=== PATIENT | female | born 1990 | race Caucasian/White ===

== ENCOUNTER 2018-08-03 02:24 | Inpatient (IN) | payer MEDICAID ==
[2018-08-03] MEDS ORDERED: Lidocaine 1% 50 ML MDV INJECT PRN (08:37)
[2018-08-03] MEDS ORDERED: Sodium Chloride 0.9% 10 ML Syringe FLUSH PRN (08:37)
[2018-08-03] MEDS ORDERED: Oxytocin/Lactated Ringers 10 UNIT/1,000 ML BAG IV SCH ×3 (08:45)
[2018-08-03] MEDS: Lactated Ringers 1,000 ML IV SCH ×2 (10:52→18:39)
[2018-08-03] MEDS ORDERED: Ampicillin 2 GM AdvVial IV ONE (14:28)
[2018-08-03] MEDS ORDERED: Ampicillin 2 GM in Sodium Chloride 0.9% 100 ML IV ONE (14:30)
[2018-08-03] MEDS: Nalbuphine 20 MG/ML 1 ML Syringe IVPUSH PRN ×2 (16:40→18:47)
[2018-08-03] MEDS ORDERED: Ampicillin 1 GM in Sodium Chloride 0.9% 100 ML IV SCH (18:30)
[2018-08-03] MEDS: Ibuprofen 600 MG Tab PO PRN (20:45)
--- NOTE | 2018-08-03 22:01 | PCM.SN ---
- Free Text/Narrative Note: Stage 1 - Patient presented for 42 week induction of labor. Progressed to complete with overall reassuring FHT Stage 2 - of viable male, weight 9#14oz. Head delivered in controlled manner over intact perineum. Body and shoulders without difficulty. 8/9 APGARS. Cord clamped and cut. \ Stage 3 of intact placenta. 3vc. 2d MLL repaired with 3-0 vicryl. EBL 300
[2018-08-03] MEDS ORDERED: Lanolin 100% Cream 7 GM Tube TOP PRN (22:05)
[2018-08-03] MEDS ORDERED: Witch Hazel Medicated Pads 100/Jar TOP PRN (22:05)
[2018-08-03] MEDS ORDERED: Docusate Sodium 100 MG Cap PO PRN (22:05)
[2018-08-03] MEDS ORDERED: Benzocaine/Menthol 20%-0.5% Spray 56 GM Canister TOP PRN (22:05)
[2018-08-03] MEDS: Acetaminophen 325 MG Tab PO PRN (22:34)
[2018-08-04] MEDS: Ibuprofen 600 MG Tab PO PRN ×4 (02:13→19:37)
[2018-08-04] MEDS: Acetaminophen 325 MG Tab PO PRN ×2 (05:57→11:46)
--- NOTE | 2018-08-04 07:46 | PCM.DCSUM1 ---
Discharge Summary - Hospital Course HPI Initial Comments: Admitted for induction of labor at 42 weeks. Uncomplicated induction and delivery. Diagnosis: Stroke: No - Discharge Data Discharge Date: 08/04/18 Discharge Disposition: Home, Self-Care 01 Condition: Good - Patient Instructions Diet: Usual Diet as Tolerated Activity: No Strenuous Activities Activity, Other: pelvic rest Driving: May Drive Today Notify Provider of: Fever, Increased Pain, Swelling and Redness, Drainage, Nausea and/or Vomiting - Discharge Plan *PRESCRIPTION DRUG MONITORING PROGRAM REVIEWED*: No *COPY OF PRESCRIPTION DRUG MONITORING REPORT IN PATIENT STACI: No Referrals: Jose Maria Tamez MD [Primary Care Provider] - (2 weeks) - Discharge Summary/Plan Comment DC Time >30 min.: No - General Info Date of Service: 08/04/18 Functional Status: Reports: Pain Controlled - Review of Systems General: Reports: No Symptoms HEENT: Reports: No Symptoms Pulmonary: Reports: No Symptoms Cardiovascular: Reports: No Symptoms Gastrointestinal: Reports: No Symptoms Genitourinary: Reports: No Symptoms Musculoskeletal: Reports: No Symptoms Skin: Reports: No Symptoms Neurological: Reports: No Symptoms Psychiatric: Reports: No Symptoms - Patient Data Vitals - Most Recent: Last Vital Signs Temp 36.1 C 08/04/18 03:07 Pulse 69 08/03/18 22:12 Resp 16 08/04/18 03:07 BP 112/61 08/04/18 03:07 Pulse Ox 100 08/03/18 08:37 Weight - Most Recent: 106.594 kg I&O - Last 24 hours: Intake & Output 08/03/18 08/04/18 08/04/18 22:59 06:59 14:59 Intake Total 1320 Balance 1320 Lab Results - Last 24 hrs: Laboratory Results - last 24 hr 08/03/18 08/03/18 08/04/18 Range/Units 08:30 10:30 06:27 WBC 18.66 H (3.98-10.04) K/mm3 RBC 3.85 L (3.98-5.22) M/mm3 Hgb 10.5 L (11.2-15.7) gm/L Hct 31.6 L (34.1-44.9) % MCV 82.1 (79.4-94.8) fl MCH 27.3 (25.6-32.2) pg MCHC 33.2 (32.2-35.5) g/dl RDW Std Deviation 40.0 (36.4-46.3) fL Plt Count 274 (182-369) K/mm3 MPV 9.5 (9.4-12.3) fl Neut % (Auto) 79.4 H (34.0-71.1) % Lymph % (Auto) 11.1 L (19.3-51.7) % Dale % (Auto) 8.8 (4.7-12.5) % Eos % (Auto) 0.2 L (0.7-5.8) Baso % (Auto) 0.1 (0.1-1.2) % Neut # (Auto) 14.83 H (1.56-6.13) K/mm3 Lymph # (Auto) 2.07 (1.18-3.74) K/mm3 Dale # (Auto) 1.65 H (0.24-0.36) K/mm3 Eos # (Auto) 0.03 L (0.04-0.36) K/mm3 Baso # (Auto) 0.01 (0.01-0.08) K/mm3 Manual Slide Review Abnormal smear Hemoglobin A1c 5.60 (4.50-6.20) % Blood Type A POSITIVE Gel Antibody Screen Negative Med Orders - Current: Current Medications Acetaminophen (Tylenol) 650 mg PO Q4H PRN PRN Reason: mild pain or fever Last Admin: 08/04/18 05:57 Dose: 650 mg Benzocaine/Menthol (Dermoplast Pain Relief [place]) 0 gm TOP ASDIRECTED PRN PRN Reason: Perineal Comfort Measure Last Admin: 08/03/18 22:36 Dose: 1 canister Docusate Sodium (Colace) 100 mg PO BID PRN PRN Reason: Constipation Emollient Ointment (Lansinoh Hpa) 0 gm TOP ASDIRECTED PRN PRN Reason: Sore Nipples Last Admin: 08/03/18 22:34 Dose: 1 tube Ibuprofen (Motrin) 600 mg PO Q6H PRN PRN Reason: Mild pain or fever Last Admin: 08/04/18 02:13 Dose: 600 mg Witch Ryann (Tucks) 1 pad TOP ASDIRECTED PRN PRN Reason: Hemorrhoid pain Last Admin: 08/03/18 22:35 Dose: 1 canister Discontinued Medications Ampicillin Sodium (Ampicillin) Confirm Administered Dose 2 gm IV .STK-MED ONE Stop: 08/03/18 14:29 Last Admin: 08/03/18 14:36 Dose: Not Given Lactated Ringer's (Ringers, Lactated) 1,000 mls @ 100 mls/hr IV ASDIRECTED NABEEL Last Admin: 08/03/18 18:39 Dose: 100 mls/hr Oxytocin/Lactated Ringer's (Pitocin In Lr 10 Units/1,000 Ml) 10 unit in 1,000 mls @ 12 mls/hr IV TITRATE NABEEL; Protocol Last Titration: 08/03/18 15:00 Dose: 3 munits/min, 18 mls/hr Oxytocin/Lactated Ringer's (Pitocin In Lr 10 Units/1,000 Ml) 10 unit in 1,000 mls @ 500 mls/hr IV .CONTINUOUS NABEEL Oxytocin/Lactated Ringer's (Pitocin In Lr 10 Units/1,000 Ml) 10 unit in 1,000 mls @ 100 mls/hr IV .CONTINUOUS NABEEL Ampicillin Sodium 1 gm/ Sodium (Chloride) 100 mls @ 200 mls/hr IV Q4H NABEEL Last Admin: 08/03/18 18:40 Dose: 200 mls/hr Ampicillin Sodium 2 gm/ Sodium (Chloride) 100 mls @ 200 mls/hr IV ONETIME ONE Stop: 08/03/18 14:59 Last Admin: 08/03/18 14:34 Dose: 200 mls/hr Lidocaine HCl (Xylocaine 1%) 50 ml INJECT ONETIME PRN PRN Reason: Other Nalbuphine HCl (Nubain) 10 mg IVPUSH Q2H PRN PRN Reason: pain Last Admin: 08/03/18 18:47 Dose: 5 mg Sodium Chloride (Saline Flush) 10 ml FLUSH ASDIRECTED PRN PRN Reason: Keep Vein Open - Exam General: Reports: Alert, Oriented HEENT: Reports: Pupils Equal, Pupils Reactive, EOMI, Mucous Membr. Moist/[place] Neck: Reports: Supple Lungs: Reports: Clear to Auscultation, Normal Respiratory Effort Cardiovascular: Reports: Regular Rate, Regular Rhythm GI/Abdominal Exam: Normal Bowel Sounds, Soft, Non-Tender, No Organomegaly, No Distention, No Abnormal Bruit, No Mass, Pelvis Stable (Female) Exam: Normal External Exam, Normal Speculum Exam, Normal Bimanual Exam Back Exam: Reports: Normal Inspection, Full Range of Motion Extremities: Normal Inspection, Normal Range of Motion, Non-Tender, No Pedal Edema, Normal Capillary Refill Skin: Reports: Warm, Dry, Intact Wound/Incisions: Reports: Healing Well Neurological: Reports: No New Focal Deficit Psy/Mental Status: Reports: Alert, Normal Affect, Normal Mood
[2018-08-04 21:27] VITALS: BP 123/52
== END 2018-08-04 21:05 | disposition home or self-care (01) | DRG 775 ==
LOC: JD.OB 06:53 → OBSVTOIN 20:13 → JD.OB 20:13
PROVIDERS: ADMIT Obstetrics & Gynecology; ATTEND Obstetrics & Gynecology
PROC: 3E033VJ Introduction of Other Hormone into Peripheral Vein, Percutaneous Approach (ICD-10-PCS; principal; 2018-08-03)
PROC: 10E0XZZ Delivery of Products of Conception, External Approach (ICD-10-PCS; principal; 2018-08-03)
PROC: 0KQM0ZZ Repair Perineum Muscle, Open Approach (ICD-10-PCS; principal; 2018-08-03)
DX: O48.0 Post-term pregnancy (principal); Z37.0 Single live birth; Z3A.42 42 weeks gestation of pregnancy; Z85.820 Personal history of malignant melanoma of skin; O70.1 Second degree perineal laceration during delivery
CPT/HCPCS: 36415; 59025; 59300; 59409; 83036; 85025; 86850; 86900; 86901; A9270-GY; J0290; J2300; J2590; J7030; J7120